=== PATIENT | female | born 1965 | race Caucasian/White ===

== ENCOUNTER 2024-12-31 15:58 | Emergency (ER) | payer MEDICAID ==
[~2024-12-31] VITALS: Ht 170.2 cm; Wt 110.0 kg
[2024-12-31 16:16] VITALS: O2SAT 98
[2024-12-31 18:41] LABS: BASOPHILS % 0.4 % (0.0-2.0); EOSINOPHILS % 4.7 % (0.0-5.0); HEMATOCRIT. 35.4 % (36.0-48.0); HEMOGLOBIN. 11.7 g/dL (12.0-16.0); LYMPHOCYTES % 32.6 % (20.0-50.0); MEAN CORPUSCULAR HEMOGLOBIN 29.1 pg (28.0-32.0); MEAN CORPUSCULAR HGB CONC 32.9 g/dL (31.0-37.0); MEAN CORPUSCULAR VOLUME 88.2 fL (81.0-99.0); MEAN PLATELET VOLUME 9.1 fl (7.4-10.4); MONOCYTES % 6.1 % (2.0-8.0); NEUTROPHILS % 56.2 % (40.0-76.0); PLATELET 236 x1000/uL (130-400); RED BLOOD CELL COUNT 4.01 mill/uL (4.2-5.4); RED CELL DISTRIBUTION WIDTH 13.6 % (11.6-14.6); WHITE BLOOD COUNT 7.6 x1000/uL (4.5-11.0)
[2024-12-31 18:46] LABS: POTASSIUM 4.3 mEq/L (3.5-5.1)
[2024-12-31 18:52] LABS: CREATININE 1.4 mg/dL (0.6-1.0)
[2024-12-31] MEDS ORDERED: GABAPENTIN 300MG CAPSULE PO STA (19:31)
[2024-12-31] MEDS ORDERED: GABA-529 MT (19:35)
[2024-12-31] MEDS: GABAPENTIN 300MG CAPSULE PO NR (20:00)
[2024-12-31 20:11] VITALS: BP 139/77; PULSE 70; RESP 20; TEMP 37.1; O2SAT 98
== END 2024-12-31 20:12 | disposition home or self-care (01) ==
LOC: ER 15:58
DX: T23.001A Burn of unspecified degree of right hand, unspecified site, initial encounter (principal); E11.40 Type 2 diabetes mellitus with diabetic neuropathy, unspecified; E11.65 Type 2 diabetes mellitus with hyperglycemia; I10 Essential (primary) hypertension; Z90.49 Acquired absence of other specified parts of digestive tract; Z79.899 Other long term (current) drug therapy; X08.8XXA Exposure to other specified smoke, fire and flames, initial encounter; Y93.89 Activity, other specified; Y92.89 Other specified places as the place of occurrence of the external cause; Y99.8 Other external cause status
CPT/HCPCS: 36415; 80048; 85025; 99283